=== PATIENT | male | born 1970 | race Caucasian/White ===

== ENCOUNTER 2018-09-03 09:02 | Outpatient (CLI) | payer OTHER, SELFPAY ==
[2018-09-03 10:23] LABS: Anion Gap 8.3 mmol/L (3-11); BUN 20 mg/dL (7-18); CO2 28.7 mmol/L (21.0-32.0); CREATININE 0.93 mg/dL (0.70-1.30); Calcium 8.8 mg/dL (8.5-10.1); Chloride 102 mmol/L (98-107); Glucose 232 mg/dL (70-100); Potassium 4.5 mmol/L (3.5-5.1); Sodium 139 mmol/L (136-145)
== END 2018-09-03 09:22 ==
PROVIDERS: PCP Family Medicine; Visit Provider Family Medicine
DX: E11.9 Type 2 diabetes mellitus without complications (principal)
CPT/HCPCS: 36415; 80048

== ENCOUNTER 2018-09-23 11:10 | Outpatient (CLI) | payer OTHER, SELFPAY ==
[2018-09-23 11:39] LABS: Hemoglobin A1C 8.9 % (4.5-6.2)
== END 2018-09-23 11:30 ==
PROVIDERS: PCP Family Medicine; Visit Provider Family Medicine
DX: E11.9 Type 2 diabetes mellitus without complications (principal)
CPT/HCPCS: 36415; 83036

== ENCOUNTER 2018-12-07 08:44 | Outpatient (CLI) | payer OTHER, SELFPAY ==
[2018-12-07 09:23] LABS: Hemoglobin A1C 7.5 % (4.5-6.2)
== END 2018-12-07 09:04 ==
PROVIDERS: PCP Family Medicine; Visit Provider Family Medicine
DX: E11.9 Type 2 diabetes mellitus without complications (principal)
CPT/HCPCS: 36415; 83036

== ENCOUNTER 2019-04-13 07:23 | Outpatient (CLI) | payer OTHER, SELFPAY ==
[2019-04-13 08:37] LABS: Hemoglobin A1C 7.4 % (4.5-6.2)
[2019-04-13 08:59] LABS: Anion Gap 10.7 mmol/L (3-11); BUN 20 mg/dL (7-18); CO2 25.3 mmol/L (21.0-32.0); CREATININE 0.92 mg/dL (0.70-1.30); Calcium 9.2 mg/dL (8.5-10.1); Chloride 104 mmol/L (98-107); Cholesterol 176 mg/dL (50-200); Glucose 225 mg/dL (70-100); HDL Cholesterol 31 mg/dL (40-60); LDL CHOLESTEROL 120 mg/dL (<100); Potassium 4.2 mmol/L (3.5-5.1); Sodium 140 mmol/L (136-145); Triglyceride 240 mg/dL (30-150)
== END 2019-04-13 07:43 ==
PROVIDERS: Family Medicine; PCP Family Medicine; Visit Provider Family Medicine
DX: E11.9 Type 2 diabetes mellitus without complications (principal)
CPT/HCPCS: 36415; 80048; 80061; 83721; 83036

== ENCOUNTER 2021-03-28 16:05 | Outpatient (REF) | payer OTHER, SELFPAY ==
[2021-03-28 22:17] LABS: Hemoglobin A1C 7.8 % (<5.7)
[2021-03-28 22:26] LABS: CREATININE 0.9 mg/dL (0.70-1.30); Calculated LDL 134 mg/dL (<100); Cholesterol 206 mg/dL (<200); HDL Cholesterol 37 mg/dL (40-60); Potassium 4.1 mmol/L (3.5-5.1); Triglyceride 175 mg/dL (<150)
== END 2021-03-28 16:06 | disposition home or self-care (01) ==
LOC: NCHCN 16:05
PROVIDERS: PCP Family Medicine; Visit Provider Family Medicine
DX: E78.5 Hyperlipidemia, unspecified (principal); R73.9 Hyperglycemia, unspecified; I10 Essential (primary) hypertension
CPT/HCPCS: 80061; 82565; 83036; 84132

== ENCOUNTER 2021-05-24 10:30 | Outpatient (CLI) | payer OTHER, SELFPAY ==
--- NOTE | 2021-05-24 10:00 | DI.RAD_ITS ---
Exam(s) XR LUMBAR SPINE AP, LAT EXAM: XR LUMBAR SPINE AP, LAT CLINICAL HISTORY: CHRONIC T-L PAIN RT SIDE. TECHNIQUE: 2D digital imaging was performed. COMPARISON: CR LUMBAR SPINE AP, LAT from 06/14/2013 FINDINGS: There is no evidence of compression fracture. There is mild anterolisthesis of L5 upon S1. There ap pear to be possible pars defects at L5 level. Mild disc space narrowing at this level is noted as we ll as moderate disc space narrowing at L4-5 level. Anterior osseous lipping at L3-4 level is noted. There is normal disc height at L3-4 with the exception of posteriorly where there is some narrowing. No osseous lesions. SI joints appear unremarkable. No scoliosis. IMPRESSION: Findings as above. Recommend flexion and extension lateral views over L5-S1 level to determine the t rue amount of slippage of L5 upon S1 during everyday activities and to bring out but I suspect are pa rs defects at the L5 level. DATA REPOSITORY: RADIATION DOSE DELIVERED:
== END 2021-05-24 10:50 ==
PROVIDERS: PCP Nurse Practitioner Family; Visit Provider Chiropractor Orthopedic
DX: M54.6 Pain in thoracic spine (principal); M54.9 Dorsalgia, unspecified; G89.29 Other chronic pain
CPT/HCPCS: 72100

== ENCOUNTER 2022-01-30 01:20 | Outpatient (CLI) | payer OTHER, SELFPAY ==
[2022-01-30 12:15] LABS: Source Nasal/Nares
[2022-01-30 14:31] LABS: COVID-19 PCR Negative (Negative)
== END 2022-01-30 01:21 | disposition home or self-care (01) ==
LOC: LBO 01:20
PROVIDERS: PCP Nurse Practitioner Family; Visit Provider Surgery
DX: Z20.822 Contact with and (suspected) exposure to COVID-19 (principal)
CPT/HCPCS: 87635

== ENCOUNTER 2022-02-01 07:09 | Day surgery (SDC) | payer OTHER, SELFPAY ==
--- NOTE | 2022-02-01 06:17 | W.ANESPRE ---
General Info Date of Service Date Performed: 02/01/22 Height: 5 ft 8 in Weight: 126.722 kg Body Mass Index (BMI): 42.5 Surgical Procedure: Operation Date: 02/01/22 08:20 Proposed Procedure Side Surgeon alfonso Urban, Meds Allergies and Home Medications Allergies Allergy/AdvReac Type Severity Reaction Status Date / Time cefaclor Allergy Unknown skin rash Verified 02/01/22 07:39 Cephalosporins Allergy Unknown Verified 02/01/22 07:39 codeine AdvReac Intermediate nausea Verified 02/01/22 07:39 erythromycin base AdvReac Mild GI Verified 02/01/22 07:39 Irritation Home Medication Medication Instructions Recorded blood sugar diagnostic (Akshay WellnessTouch #100 strip 09/30/18 Ultra Test) lancets 33 gauge (OneTouch Delica #100 ea 09/30/18 Lancets) ibuprofen 800 mg tablet 800 mg PO TID #90 tab-cap 12/18/20 atorvastatin 20 mg tablet 20 mg PO QHS #90 tab 03/29/21 metformin 1,000 mg tablet 1,000 mg PO BID #180 tab-cap 08/22/21 glipizide 5 mg tablet 5 mg PO BID #180 tab-cap 11/14/21 empagliflozin 25 mg tablet 25 mg PO QAM #90 tab 12/07/21 (Jardiance) lisinopril 5 mg tablet 5 mg PO DAILY #90 tab-cap 12/07/21 bisacodyl 5 mg tablet,delayed 5 mg PO ONCE #4 tab 01/18/22 release (Dulcolax (bisacodyl)) polyethylene glycol 3350 17 238 g PO ONCE #238 g 01/18/22 gram/dose oral powder zolpidem 10 mg tablet (Ambien) 10 mg PO QHS PRN #30 tab 01/24/22 Current Visit Medications: Current Medications Generic Name Dose Route Start Last Admin Trade Name Freq PRN Reason Stop Dose Admin Hyoscyamine Sulfate 0.125 mg 01/31/22 09:59 Hyoscyamine 0.125 Mg Sl/Oral/Chew SL DIRECTED PRN Ringer's Solution 1,000 mls @ 80 mls/hr 02/01/22 06:00 IV 02/28/22 23:59 INFUSION TED IV Miscellaneous Supplies 1 each 02/01/22 06:00 Iv Access IV 02/28/22 23:59 DIRECTED TED Ondansetron HCl 4 mg 01/31/22 09:59 Ondansetron 4 Mg/2 Ml Vial IVP Q4H PRN PRN Nausea / Vomiting Sodium Chloride 0 ml 02/01/22 06:00 Normal Saline Flush 10 Ml Syr IV 02/28/22 23:59 PRN PRN Sodium Chloride 0 ml 02/01/22 06:00 Normal Saline 10 Ml Vial IJ 02/28/22 23:59 DIRECTED PRN Sterile Water 0 ml 02/01/22 06:00 Water,Injection,Sterile 10 Ml Vial IJ 02/28/22 23:59 DIRECTED PRN PFSH Active Problems Active Problems: Problem Status Onset Code Screening for colon cancer Z12.11 Subluxation of costovertebral joint S23.100A Rib sprain S23.41XA Chronic thoracic back pain M54.6, G89.29 Chronic low back pain M54.5, G89.29 History of open reduction and internal fixation (ORIF) procedure Z98.890 Status post appendectomy Z90.49 Status post rotator cuff repair Z98.890 Status post tonsillectomy Z90.89 Insomnia G47.00 Tinnitus 12/22/17 H93.19 Thoracic spine pain 03/09/15 M54.6 Sleep disorder G47.9 Obesity E66.9 Hypertension 06/15/18 I10 History of tobacco use Z87.891 Spasm of thoracic back muscle M62.830 Generalized osteoarthrosis M15.9 Diabetes 05/26/14 E11.9 Dermatitis L30.9 Depressive disorder F32.9 Cervical radiculopathy 03/09/15 M54.12 Abnormal auditory perception 12/22/17 H93.299 Medical History Medical History (Updated 02/01/22 @ 07:59 by Jasmina Coy) Diabetes GERD (gastroesophageal reflux disease) History of cellulitis RLE x 3 History of COVID-19 Hypertension Inguinal hernia right Inguinal lymphadenopathy Surgical History Surgical History Appendectomy Fracture, Open Treatment tibia Repair of inguinal hernia right Rotator Cuff Repair right Tonsillectomy Tobacco Smoking/Tobacco Use Status: Former Tobacco Use Smokeless tobacco user: chewing tobacco and snuff Passive smoking exposure: Yes Second hand exposure: Yes Alcohol Alcohol Intake: current Alcohol intake frequency: holidays/special occasions only Alcohol type: beer Substance Use Substance use: Never Substance use type: does not use Vital Signs and Lab Results Lab Results Blood Type / Crossmatch: No Data to Display Complete Blood Count: No Data to Display Complete Metabolic Panel: No Data to Display Liver Function Panel: No Data to Display Coagulation Panel: No Data to Display Cardiac Panel: No Data to Display Arterial Blood Gas: No Data to Display Venous Blood Gas: No Data to Display Pancreas Panel: No Data to Display Thyroid Panel: No Data to Display Infectious Disease: Coronavirus (COVID-19)(PCR) Negative (Negative) 01/30/22 08:21 01/30/22 Coronavirus 2019 Source Nasal/Nares 01/30/22 08:21 01/30/22 Blood Cultures: No Data to Display Toxicology Panel: No Data to Display Imaging and Studies Imaging and Studies Study information below may be from another EMR and interpreted by another provider. Please see original notes in EMR for more complete details. Stress Test Summary: 2017: normal study after max exercise. Anesthesia Assessment and Plan Anesthesia History Personal History: No History of Anesthesia Complications Family History: No Family History of Anesthesia Complications Exercise Tolerance Exercise Tolerance: Metabolic Equivalents>4 Cardiac & Pulmonary Exam Cardiac Exam: Normal S1/S2 Heart Sounds Pulmonary Exam: Clear Bilateral Breath Sounds Implantable Cardiac Device Does patient have a Pacemaker or an ICD?: No Airway Exam Known Difficult Airway: No Mallampati Class: 3 Mouth Opening: Narrow (< 3cm) Thyromental Distance: Greater than 3 cm Neck Range of Motion: Full ROM Neck Circumference: Thick Teeth Condition: Normal Dentition ASA Classification ASA Score: ASA 3 Emergency Case?: No NPO Status NPO Status: NPO Clears >2 hours, Solids >8 hours Anesthesia Plan Resuscitation Status: Full Code Anesthesia Technique: General Anesthesia Airway Planned: Natural Airway Monitors Used: Standard Monitors Preoperative Comments:: 51 male for screening colo. Sig PMHx: BMI >40, DM (A1c 8.1%, metformin, glipizide, empagliflozin), GERD, HTN (lisinopril), former smoker (chews and snuff now), occ EtOH.
[2022-02-01 07:53] VITALS: BP 141/92; PULSE 88; RESP 16; TEMP 36.1; O2SAT 96
[2022-02-01] MEDS: Lactated Ringers 1,000 ML 80 ML IV (08:30)
[2022-02-01 08:33] VITALS: BMI 42.5
--- NOTE | 2022-02-01 08:36 | W.COLOREPORT ---
Colonoscopy Report Date of procedure: 02/01/22 Pre-op diagnosis general: CRC screen Post-op diagnosis procedure note: other (normal) Surgeon: Sherri Urban Anesthesia Type: General:No Airway Complications: None Disposition: same day Prep: Miralax/Dulcolax Retraction Time: 7 ins Procedure Description: After informed consent was obtained the patient was taken to the procedure room and placed in a left decubitous position. Monitors were applied and a time out was done. The patients name, date of , procedure, allergies to medications and metal in their body was reviewed. The patient was then sedated. Once sedated and comfortable a rectal exam was done. External exam was normal. Internal exam revealed a normal sphincter tone and no palpable masses. An endocuff was used today. The scope was then introduced and retrofelexed. No internal hemorrhoids were identified. The scope was then advanced to the cecum W/out difficulty. The TI and appendiceal orifice were identified. The prep was bbps-3 in all segments (9). The scope was then slowly retracted over 7 minutes back into the rectum. There are no polyps/AVM's/diverticula visulaized on today's exam. The scope was removed and the patient was woken up and taken back to Same day surgery in stable condition. The patient tolerated the procedure well and there were no immediate complications. Follow up: The patient should follow up in 10 years unless they develop changes in bowel habits or other new gastrointestinal complaints.
--- NOTE | 2022-02-01 09:07 | PDOC.DSDIS_ITS ---
Discharge Plan Disposition Patient Disposition: HOME Condition: Good Discharge Details Reason For Visit: CRC screen Attending Provider: Sherri Urban Primary Care Provider: Brando Braun Home Meds and New Rx's Prescriptions: No Action (DME) lancets [OneTouch Delica Lancets] 33 gauge misc 1 ea Miscellaneous DAILY Qty: 100 11RF Rx Instructions: bid prn (DME) OneTouch Ultra Test strip 1 ea Miscellaneous DAILY Qty: 100 11RF Rx Instructions: use bid prn zolpidem [Ambien] 10 mg tablet 10 mg PO QHS PRN (Reason: sleep) Qty: 30 0RF polyethylene glycol 3350 17 gram/dose powder 238 g PO ONCE Qty: 238 0RF Rx Instructions: take per colonoscopy instructions bisacodyl [Dulcolax (bisacodyl)] 5 mg tablet,delayed release (DR/EC) 5 mg PO ONCE Qty: 4 0RF Rx Instructions: take per colonoscopy instructions ibuprofen 800 mg tablet 800 mg PO TID Qty: 90 2RF Rx Instructions: with food atorvastatin 20 mg tablet 20 mg PO QHS Qty: 90 3RF metformin 1,000 mg tablet 1,000 mg PO BID Qty: 180 4RF glipizide 5 mg tablet 5 mg PO BID Qty: 180 4RF lisinopril 5 mg tablet 5 mg PO DAILY Qty: 90 4RF Jardiance 25 mg tablet 25 mg PO QAM Qty: 90 3RF Discharge Instructions Additional Instructions: DSU Colonoscopy Post- Op Instructions Instructions for Everyone who is given Anesthesia: For your safety, please do the following for the next twenty-four (24) hours: *Do Not operate a motor vehicle (car, truck, motorcycle, etc.) *Do Not drink alcoholic beverages or use any recreational drugs for the first 24 hours or while taking pain medications. The medications in your body may have a reaction that can be dangerous. *Do Not make any important decisions or sign any important papers. Findings: normal Follow up: repeat in 10 yrs time 1. No lifting over 20 pounds or strenuous activity for the first 24 hours after your procedure. After 24 hours there are no restrictions on your activity but you may feel fatigued for a few days. 2. After you arrive home you may have a light meal and return to your normal diet as you can tolerate it without feeling sick to your stomach. 3. You may have a bloated, gaseous feeling in your belly (abdomen) after a colonoscopy. Passing gas and belching will help. Walking or lying down on your left side with your knees flexed may relieve the discomfort. Call the office at [phone] (Office) or [phone] (Hospital) right away if you notice any of the following: a.Vomiting of blood or ?coffee ground stools?. b.Rectal bleeding 1Tbsp, blood clots or continuous bleeding. c.Severe belly (abdominal) pain. d.A hard distended belly (abdomen) and an inability to pass gas. 4. Please don?t expect to have a normal BM (bowel movement) for 2-3 days after your procedure. 5. If there are questions regarding the findings of your procedure, please contact your doctor 6. If you are unable to contact your doctor with a problem, contact the hospital at [phone]. 7. Continue all your regular medications unless directed otherwise. I understand the above instructions and have no questions. Signature of Patient or Adult Escort Name of Responsible Adult Escort Signature of Nurse Date/Time Activity:: see above Diet:: see above Discharge Orders Discharge Orders: Discharge Order (Routine); Ordered 01/31/22 Ordered By: Sherri Urban
[2022-02-01 09:17] VITALS: BP 121/85; PULSE 84; RESP 16; TEMP 36.3; O2SAT 92
--- NOTE | 2022-02-01 09:27 | W.ANESPOSTOP ---
Postoperative Evaluation Date, Time and Location Date Performed: 02/01/22 Time Performed: 09:15 Patient Location: Day Surgery Unit Vital Signs Most Recent Imported Vital Signs: Most Recent Vital Signs Temp Pulse Resp BP Pulse Ox 36.3 C L 84 16 121/85 92 02/01/22 09:17 02/01/22 09:17 02/01/22 09:17 02/01/22 09:17 02/01/22 09:17 Pain Score Most Recent Pain Score: Most Recent Pain Score Pain Level 0 02/01/22 09:17 Assessment Mental Status: Arousable with meaningful communication Airway and Respiratory Function: Patent airway with normal (patient baseline) respiratory exam Cardiovascular Function: Hemodynamically Stable Hydration Status: Adequately Hydrated Nausea & Vomiting: No Nausea or Vomiting Pain: Pt. Denies Any Pain Peripheral Nerve Block: Patient did not receive a nerve block
[2022-02-01 09:41] VITALS: BP 108/72; PULSE 74; RESP 16; TEMP 36.2; O2SAT 95
== END 2022-02-01 09:50 | disposition home or self-care (01) ==
PROVIDERS: PCP Nurse Practitioner Family; Visit Provider Surgery
PROC: 0DJD8ZZ Inspection of Lower Intestinal Tract, Via Natural or Artificial Opening Endoscopic (ICD-10-PCS; CPT 45378; principal; 2022-02-01 08:15)
DX: Z12.11 Encounter for screening for malignant neoplasm of colon (principal); E11.9 Type 2 diabetes mellitus without complications; I10 Essential (primary) hypertension; K21.9 Gastro-esophageal reflux disease without esophagitis; Z79.84 Long term (current) use of oral hypoglycemic drugs
CPT/HCPCS: 45378; J2001

== ENCOUNTER → 2022-07-26 00:22 | Outpatient (CLI) | payer OTHER, SELFPAY ==
--- OUTSIDE RECORDS SUMMARY | 2022-07-26 00:23 | XMS_ITS | Encounter Summary ---
:1970 Author Organization [facility] [place] [address] Care Team Providers Name Role Phone Nils Liz MD Primary Care Provider Reason for Visit Reason Comments Psoriasis Encounter Details Date Type Department Care Team Description 01/21/2013 Office Visit Dermatology Dru Arellano, Psoriasis (Primary [address] MD Dx) [address] [place], [place] DERMATOLOGY [address] [place] [address] [phone] (Wo rk) Social History Tobacco Use Types Packs/Day Years Used Date Never Smoker Sex Assigned at Date Recorded Not on file documented as of this encounter Progress Notes Dru Arellano MD - 01/21/2013 4:22 PM EST Problems: 1. Followup psoriasis. 2. Status post unsuccessful trials of acitretin, methotrexate, Enbrel, and Humira. Jono follows up after last being seen in March 2012. He was seen at [facility] this summer and treated with topical clobetasol and triamcinolone cream, which did seem to help. He has run out of these and also was told not to use them too long because of the potential for steroidal atrophy. He wonders what he should be doing at this point. Physical examination reveals psoriasiform changes on the palmar hands with cracking and fissuring hyperkeratosis, also on his anterior shins, and a little bit on the soles of his feet. He has no significant involvement on the elbows today. Assessment and Plan: Psoriasiform hand and foot dermatitis, probable psoriasis, also involving shins. a. Discussed the safety of clobetasol if used as prescribed. Apply b.i.d. to hands to control psoriasis, and then try to minimize use and use CeraVe cream; 50 grams dispensed with three refills. b. May also use for shins, but discussed steroidal atrophy and the importance also of clobetasol holidays to allow the skin to recover. c. Discussed also the option of Stelara, which his significant other, Rosalinda, is using. d. Continue CeraVe cream as an emollient. e. The patient will be heading south for a vacation, and I think with the trip to [place] and the summer weather coming, he should see significant improvement; but we will hold Stelara in reserve for him. Copy: Nils Liz M.D. documented in this encounter Plan of Treatment Not on filedocumented as of this encounter Visit Diagnoses Diagnosis Psoriasis - Primary Other psoriasis documented in this encounter Care Teams Commercial Credit Reviewer Relationship Specialty Start Date End Date Nils Liz MD PCP - General 12/10/[address] [place] [address] documented as of this encounter
--- OUTSIDE RECORDS SUMMARY | 2022-07-26 00:23 | XMS_ITS | Encounter Summary ---
:1970 Author Organization [facility] [place] [address] Care Team Providers Name Role Phone Vidal Willis MD Primary Care Provider Reason for Visit Reason Comments Dermatitis Encounter Details Date Type Department Care Team Description 11/12/2011 Office Visit Dermatology Dru Arellano, Psoriasis (Primary [address] [place] Dx) [address] [place], [place] D[place]MATOLOGY [address] [place] [address] [phone] (Wo rk) Social History Tobacco Use Types Packs/Day Years Used Date Never Smoker Sex Assigned at Date Recorded Not on file documented as of this encounter Progress Notes Dru Arellano MD - 11/12/2011 4:05 PM EST Problem: Followup psoriasiform hand and foot dermatitis/shins and elbows. Jono follows up and has only seen slight improvement with the Acitretin over the last month. Also the drying effect on his skin has been noticeable and he has been getting some eczematous patches on the lower legs. Physical examination reveals continued psoriasiform changes on the palmar hands, also now new sites on the lateral aspects of his feet. He still has patches of psoriasis on the elbows and on the anterior shins and a xerotic eczematous patchy dermatitis on the back of his calves in all likelihood due to his Acitretin. Assessment & Plan: Psoriasiform hand and foot dermatitis/psoriasis. a. Continue Acitretin 25mg one p.o. q. day. b. Begin also Methotrexate 2.5mg take six of these p.o. q. week, #30 dispensed with one refill. c. Begin Triamcinolone 0.1% Cream apply BID to affected areas that are itchy and are involved on hands, feet and legs, 80gm tube dispensed with two refills. d. RTC in one month for repeat check. e. The patient's is on Enbrel for her psoriasis and this has worked wonderfully for her. We discussed that we must first try standard therapies before we could consider that option, and he understands. Copy: Nils Liz MD documented in this encounter Plan of Treatment Not on filedocumented as of this encounter Visit Diagnoses Diagnosis Psoriasis - Primary Other psoriasis documented in this encounter Care Teams Blending Technician Relationship Specialty Start Date End Date Vidal Willis MD PCP - General 10/23/10 12/09/[address] [place] [address] documented as of this encounter
--- OUTSIDE RECORDS SUMMARY | 2022-07-26 00:23 | XMS_ITS | Encounter Summary ---
:1970 Author Organization [facility] Address [address] [place] [address] Care Team Providers Name Role Phone Vidal Willis MD Primary Care Provider Unavailable Encounter Details Date Type Department Care Team Description 12/11/2017 Results Only [facility]- Alfredo De Oliveira MD [phone] [place] [address] [phone] Social History Tobacco Use Types Packs/Day Years Used Date Never Assessed Sex Assigned at Date Recorded Not on file documented as of this encounter Plan of Treatment Not on filedocumented as of this encounter Procedures Procedure Name Priority Date/Time Associated Diagnosis Comme nts SURGICAL PATHOLOGY Routine 12/11/2017 9:42 EST Re sults for this procedure are i n the results section. FLOW CYTOMETRY Routine 12/11/2017 0:00 EST Result s for this procedure are i n the results section. documented in this encounter Results SURGICAL PATHOLOGY (12/11/2017 9:42 EST) Pathology Report: SURGICAL PATHOLOGY REPORT [facility] Reports generated via electronic interface conta in original data; [facility]ENTER LAB[facility]ORY however they are lacking the format of the original re port. SERVICES Caution should be taken when reading/interpreting unfo rmatted reports. Name: ? JONO ALVARADO ? Accession #: ? [id number] ? : ? 1970 (Age: 47 ) ??M ? Collect Date: ? 12/11/2017 ? Location: ? [facility] ? Receive Date: ? 8 ? Provider: ALFREDO COBURN MD Copy to: RUBI MAURICE MD ? Final Pathologic Diagnosis: Inguinal lymph node, Right, Excisional biopsy: ? - Reactive lymph node with follic ular and paracortical hyperplasia. See comment. Comment: The biopsy sections show a benign reactive process wit h follicular and paracortical hyperplasia and focal dermatopathic changes. The concurrent flow cytometric analysis ([id number]) demonstrates no immunophe notypic evidence of a clonal cell population. The overall morphologic and immunophenotypic findings are those of a benign, reactive lymphoid process. Clin ical correlation is recommended. Document reviewed and electronically signed by: HORTENCIA NINO MD Report ??Date: 12/15/2017 13:33 By the signature above, the attending physician certif ies that he/she has personally conducted a gross and/or microscopic examin ation of the described specimens and rendered or confirmed the above diagnosi s. Specimen(s) Received: Right inguinal lymph node for pathology Clinical History: Right inguinal lymphadenopathy Gross Description: ? Received in formalin labelled with proper patient identification (initials G T) and right inguinal lym ph node for pathology is a previously incised ovoid lymph node (2.5 x 2.1 x 1.8 cm). The cut surfaces are campoverde-pink and rubbery with a mottled appearance. The specimen is submitted entire ly in 1-4. MONI Umana (ASCP) 12/12/2017 10:32 AM End of Report Specimen Performing Organization Address City/State/ZIP Code Phon e Number [facility] [address] [place] [address] SERVICES FLOW CYTOMETRY (12/11/2017 0:00 EST) Pathology FLOW CYTOMETRY REPORT [facility] MEDICAL Report: CENTER Reports generated via electronic interface contain addy ginal data; LABORATORY however they are lacking the format of the original re port. SERVICES Caution should be taken when reading/interpreting unfo rmatted reports. Name: ? JONO ALVARADO ? Accession #: ? [id number] : ? 1970 (Age: 47) ??M ?Collect Date: ? 12/11 00:00 Location: ? [facility] ? Receive Date: ? 12/12/2017 08:35 Provider: ?ALFREDO COBURN MD Copy to: ?RUBI MAURICE MD ? FINAL IMMUNOPHENOTYPIC INTERPRETATION: ? Lymph node, right inguinal, flow cytometric analysis: - ?No immunophe notypic evidence of a clonal cell population. ??See comment. ? COMMENT: The results of flow cytometry show no im munophenotypic evidence of involvement by a clonal lymphoproliferative disorder. Correlation of these findings with morphologic and clinical data is essential. The result s are consistent with reactive lymphocytes. Flow cytometry is not sensitive for the detection of Hodgkin lymphoma. Selective cell loss ma y occur and may reduce sensitivity for the detection of large cell lymphoma. Correlation of t hese findings with morphologic and clinical data is teressa mendenhall; please refer to surgical pathology report [id number] for morphologic details. ? Document reviewed and electronically signed by: ? RUBI TELLEZ MD Report Date: ??12/12/2017 14:21 By the signature above, the attending physician certif ies that he/she has personally conducted an evaluation of the described sp ecimen and rendered or confirmed the above diagnosis. CLINICAL HISTORY: The patient is a 47-year-old man with right inguinal l ymphadenopathy. DESCRIPTION: The specimen consists of lymph node tiss ue from which a single cell suspension is prepared. Gating is performed using CD45 fluorescen ce and side scatter. Cellular viability (assessed by propidium iodide exclusion) is adequate (75%) among the CD45 positive even ts. Expression of the following antigens is tested: CD2, CD3, CD4, CD5, CD7, CD8 , CD10, CD11b, CD11c, CD14, CD16, CD19, CD20, CD22, CD23, CD38, CD45, CD56, CD57, FMC-7, HLA-DR, kappa, la mbda. A majority of the lymphoid c ells are T-lymphocytes (CD2+CD3+CD5+CD7+) with CD4+ and CD8+ subsets represented. The remaining lymphocyte s are B-lymphocytes (CD19+CD20+). Among the B-cells, both kappa+ and lambd a+ subsets are represented. ? This test was developed and its performance coby acteristics determined by the Department of Pathology and Laboratory M edicine, [facility], [place], [place]. ??It has not bee n cleared or approved by the U.S. Food and Drug Administration. ??F DA does not require this test to go through premarket FDA review. ??This test is u sed for clinical purposes. ??It should not be regarded as investigational or for research. ??This laboratory is certified under the Clinical Laboratory Improvement Amendmen ts (CLIA) as qualified to perform high complexity clinical laboratory testing. ? End of Report ?? Specimen Performing Organization Address City/State/ZIP Code Phon e Number [facility] [address] [place] [address] SERVICES documented in this encounter Visit Diagnoses Not on filedocumented in this encounter Care Teams Agile Scrum Coach Relationship Specialty Start Date End Date Vidal Willis MD PCP - General 11/26/10 12/14/17 documented as of this encounter
--- OUTSIDE RECORDS SUMMARY | 2022-07-26 00:23 | XMS_ITS | Encounter Summary ---
:1970 Author Organization [facility] [place] [address] Care Team Providers Name Role Phone Nils Liz MD Primary Care Provider Reason for Visit Reason Comments Dermatitis Encounter Details Date Type Department Care Team Description 10/05/2012 Follow-Up Dermatology Jese Ceja, Dermatitis (Primary Dx) [facility] [place] [address] [facility] [place] [phone] (Wo rk) Social History Tobacco Use Types Packs/Day Years Used Date Never Smoker Sex Assigned at Date Recorded Not on file documented as of this encounter Progress Notes Anders Ramos MD - 10/05/2012 3:01 PM EST Provider ANDERS RAMOS MD I was available for discussion but I did not see this patient. ANDERS RAMOS MD, M.D. Section of Dermatology Jese Ceja MD - 10/05/2012 2:34 PM EST DERMATOLOGY - ESTABLISHED PATIENT FOLLOW-UP Date of service: 10/05/2012 Jono Alvarado : 1970 Dermatology Resident Note: Jese Ceja MD Chief Problem: Chief Complaint Patient presents with ??? Dermatitis Mr. Jono Alvardao is a 42 y.o. male. This is an established patient, last seen by me on 08/06/2012,previously seen by Dr. Arellano. HPI: Mr. Alvarado presents for follow-up of dermatitis on his shins and hands . He states that his legs are clear after moisturizing and using clobetasol, and hands are much improved. He is using Clobetasol 2-3 x's a day on his hands and moisturizing frequently with cerave. He has gloves to wear at bedtime as he scratches his hands in his sleep,but he doesn't wear them. No new concerns, doing well. Skin History: Psoriasis vs dermatitis Medical History: Patient Active Problem List Diagnoses Code ??? Psoriasis 696.1U ??? Dermatitis 692.9AP Medications: Current outpatient prescriptions ordered prior to encounter Medication Sig Dispense Refill ??? clobetasol (TEMOVATE) 0.05 % ointment Apply topically 2 times daily. 30 g 1 ??? triamcinolone (KENALOG) 0.1 % cream Apply topically 2 times daily. ??? ETANERCEPT (ENBREL SURECLICK SUBQ) Inject subcutaneously. ??? ACITRETIN ORAL Take 25 mg by mouth daily. ??? fluocinonide (LIDEX) 0.05 % cream Apply topically as needed. ??? hydroCODone-acetaminophen (NORCO) 5-325 mg per tablet 1 Tablet(s), PO, Four times daily,PRN ??? ibuprofen (ADVIL;MOTRIN) 800 mg tablet Allergies: Allergies Allergen Reactions ??? Cefaclor CIS - rash ??? Erythromycin Base ??? Codeine Phos CIS - Nausea/Vomiting Family History: No family history of melanoma or non-melanoma skin cancer No family history of atopy, psoriasis or other skin disease Review of Systems: - General: Feels well. - Skin: As per HPI; no other skin concerns. Examination: - Constitutional: Patient was alert, well-appearing and in no noticeable distress. An abbreviated skin exam was performed; this includes:shins, hands Specific skin findings: 1. Erythematous, minimally eczematous Plaques on central palms and lateral fingers, much improved. No increased temperature, purulence or other evidence of infection. Shins clear. Diagnosis/Assessment/Treatment Plan: 1. Eczematous dermatitis vs psoriasis -Legs clear, hands much improved, patient happy with current therapy. Reassured. Favor eczema for leg dermatitis, hands still difficult to ascertain whether psoriasis or eczema but much improved. No nail pitting. Advised on importance of routine health and age appropriate screening d/t link between psoriasis and metabolic syndrome and cardiovascular events. -Advised on importance of continuing with sensitive skin care and frequent moisturization, especially now that winter is here. -Switch to TAC daily x 2-3 more weeks then sparingly 2-3x weekly as needed. Clobetasol for flares only BID x 2-3 weeks if needed. Advised on ADES including atrophy, advised not to use in groin, axilla or face. -Rec wear his gloves at bedtime. -Patient will call for follow-up if necessary or if he flares, otherwise will f/u prn. RTC As needed. Instructed to call for questions/concerns. Jese Ceja MD Resident in Dermatology [facility] staff rug sizer: Bryan Ramos MD Section of Dermatology [facility] documented in this encounter Plan of Treatment Not on filedocumented as of this encounter Visit Diagnoses Diagnosis Dermatitis - Primary Contact dermatitis and other eczema, due to unspecified cause documented in this encounter Care Teams Detailer Relationship Specialty Start Date End Date Nils Liz MD PCP - General 12/10/[address] [place] [address] documented as of this encounter
--- OUTSIDE RECORDS SUMMARY | 2022-07-26 00:23 | XMS_ITS | Encounter Summary ---
:1970 Author Organization [facility] Address [address] [place] [address] Care Team Providers Name Role Phone Vidal Willis MD Primary Care Provider Unavailable Encounter Details Date Type Department Care Team Description 12/11/2017 Hospital Encounter [facility] [place] Unknown, Provider, Rajendra Schneider MD [address] [facility] [phone] [place] [address] (Work) [phone] Social History Tobacco Use Types Packs/Day Years Used Date Never Assessed Sex Assigned at Date Recorded Not on file documented as of this encounter Discharge Disposition Disposition Code Departure Means Destination Home or Self Snf documented in this encounter Plan of Treatment Not on filedocumented as of this encounter Visit Diagnoses Not on filedocumented in this encounter Care Teams Summer Babysitter Relationship Specialty Start Date End Date Vidal Willis MD PCP - General 11/26/10 12/14/17 documented as of this encounter
--- OUTSIDE RECORDS SUMMARY | 2022-07-26 00:23 | XMS_ITS | Encounter Summary ---
:1970 Author Organization [facility] Address [address] [place] [address] Care Team Providers Name Role Phone Unknown, Provider Primary Care Provider Encounter Details Date Type Department Care Team Description 11/20/2010 Results Only [facility] Rubi Liz MD [phone] [place] [address] Social History Tobacco Use Types Packs/Day Years Used Date Never Assessed Sex Assigned at Date Recorded Not on file documented as of this encounter Plan of Treatment Not on filedocumented as of this encounter Procedures Procedure Name Priority Date/Time Associated Diagnosis Comme nts SURGICAL PATHOLOGY Routine 11/20/2010 0:00 EST Re sults for this procedure are i n the results section. documented in this encounter Results SURGICAL PATHOLOGY (11/20/2010 0:00 EST) Pathologist [facility] Pathology SURGICAL PATHOLOGY REPORT ? KAJAL BLACKMON Report: Reports generated via [employer] interface contain original data; ? LAB however they are lacking the format of the original report. ? Caution should be taken when reading/interpreting unformatted reports. ? Name: ? JONO ALVARADO ? Accession #: ? [id number] ? : ? 1970 (Age: 40) ??M ? Collec t Date: ? 11/20/2010 ? Location: ? [facility] ? R eceive Date: ? 11/21/2010 ? Provider: RUBI G KAYLENE MD ? Copy to: SATURNINO MAO MD ? Final Pathologic Diagnosis: ? Skin of leg, right lo wer, punch biopsy: ? - Subacute spongiotic dermat itis. ??See comment. ? Comment: ? Multiple sections of the biopsy were reviewed. ??The biopsy shows features ?? of subacute spongiotic (ecze matous) dermatitis with superimposed changes of ? lichenification. ??The featu res could represent nummular eczema. ??Other forms of eczematous dermatitis would also be included in the differential diagnosis. ? Allergic contact dermatitis is somewhat less likely, however, given the paucity of eosinophils within the in flammatory infiltrate. ??(Dr. Fong)/kmm ? Microscopic Description: ? Sections consist of a bisected punch biopsy of skin to the deep reticular ?? dermis. ??The stratum corneu m has compacted orthohyperkeratosis with foci of ? parakeratosis and scale heber t. ??The epidermis is irregularly hyperplastic with ?? elongate and thickened rete ridges. ??There is a variable amount of epidermal ? spongiosis with exocytosis o f lymphomononuclear cells. ??In areas, the granular ?? layer is slightly accentuate d. ??Centrally, the superficial epidermis is ? excoriated and there is unde rlying reactive vascular changes. ??The papillary ? dermis has a moderately dens e perivascular and interstitial inflammatory ? infiltrate. ??The infiltrate is composed primarily of lymphomononuclear cells. ?? Many of the papillae are exp anded by thick bundles of collagen, some of which ?? are oriented in a vertical f ashion. ??Deeper sections show similar features. ? (Dr. Fong)/kmm ? Document reviewed and electr onically signed by: ? DIANA L COOK MD ? Report ??Date: 11/27/2010 13 :51 ? By the signature above, the attending physician certifies that he/she has ? personally conducted a gross and/or microscopic examination of the described ? specimens and rendered or co nfirmed the above diagnosis. ? Specimen(s) Received: ? R lower leg 4.0 mm pu nch bx ? Clinical History: ? Red papule ? Gross Description: ? Received in formalin labelled Jenny, Jono and right lower leg is a campoverde circular 0.4 cm skin pun ch excised to a depth of 0.3 cm. ??The specimen is ?? bisected and submitted racheal burks in one cassette. ?? (June Zarate)/tmg ? End of Report ? Specimen Performing Organization Address City/State/ZIP Code Phon e Number [facility] [address] [place] [address] [facility] [address] [place] [address] documented in this encounter Visit Diagnoses Not on filedocumented in this encounter Care Teams Manager Transfer Relationship Specialty Start Date End Date Unknown, Provider, PCP - General 11/21/10 11/25/10 documented as of this encounter
--- OUTSIDE RECORDS SUMMARY | 2022-07-26 00:23 | XMS_ITS | Encounter Summary ---
:1970 Author Organization [place] [address] Care Team Providers Name Role Phone Nils Liz MD Primary Care Provider Reason for Visit Reason Comments Psoriasis Encounter Details Date Type Department Care Team Description 12/10/2011 Office Visit Dermatology Dru Arellano, Psoriasis (Primary [address] [place] Dx) [address] [place], [place] DERMATOLOGY [address] [place] [address] [phone] (Wo rk) Social History Tobacco Use Types Packs/Day Years Used Date Never Smoker Sex Assigned at Date Recorded Not on file documented as of this encounter Progress Notes Dru Arellano MD - 12/10/2011 4:06 PM EST Problem: Followup psoriasiform hand and foot dermatitis, also involvement with shins and elbows. Jono follows up and has not seen significant improvement with the addition of Methotrexate to his Acitretin. In fact the Acitretin is now causing increasing drying, fissuring and cracking of the psoriatic plaques. Physical examination reveals continued psoriasiform changes on the hyman hands with cracking and fissuring which are open and painful, as well as new sites on the lateral aspects of his feet. He still has patches of psoriasis on the elbows and on the anterior shins. Assessment & Plan: Psoriasiform hand and foot dermatitis. a. D/C Acitretin. b. Continue Methotrexate 2.5mg taking six of these p.o. q. week. c. Will now attempt to obtain Enbrel. His significant other Rosalinda Lundy has been first on Enbrel and then on Humira which is working very well for her psoriasis. Will try however first Enbrel for Jono. d. Dosing would be 50mg BIW for three months, then 50mg once weekly thereafter, #8 dispensed with two refills. e. RTC in 1-2 weeks to initiate Enbrel and for injection training with the SureClick autoinjector which I have ordered today. Copy: Nils Liz MD documented in this encounter Plan of Treatment Not on filedocumented as of this encounter Visit Diagnoses Diagnosis Psoriasis - Primary Other psoriasis documented in this encounter Care Teams Battery Repairer Relationship Specialty Start Date End Date Nils Liz MD PCP - General 12/10/[address] [place] [address] documented as of this encounter
--- OUTSIDE RECORDS SUMMARY | 2022-07-26 00:23 | XMS_ITS | Encounter Summary ---
:1970 Author Organization [facility] [place] [address] Care Team Providers Name Role Phone Nils Liz MD Primary Care Provider Reason for Visit Reason Comments Psoriasis Encounter Details Date Type Department Care Team Description 01/09/2012 Office Visit Dermatology Dru Arellano, Psoriasis (Primary [address] MD Dx) [address] [place], [place] DERMATOLOGY [address] [place] [address] [phone] (Wo rk) Social History Tobacco Use Types Packs/Day Years Used Date Never Smoker Sex Assigned at Date Recorded Not on file documented as of this encounter Progress Notes Dru Arellano MD - 01/09/2012 5:24 PM EST Problem: 1. Followup psoriasis ready to begin Enbrel. 2. Status post unsuccessful trials of Acitretin and Methotrexate. Jono follows up today and he is here with his Rosalinda. He is ready to begin Enbrel. He received eight boxes of product. Physical examination today continues to reveal psoriasiform changes on the palmar hands with cracking and fissuring, also on the lateral aspects of his feet and patches of psoriasis on the elbows and anterior shins. Assessment & Plan: Psoriasiform hand and foot dermatitis as well as elbows, shins and knee involvement. a. Today demonstrated the injection technique for Enbrel. b. Discussed benefits and side effects. c. Today I injected 50mg of Enbrel into the right posterior arm for him. d. The regular dosing will now be 50mg BIW for three months then 50mg once weekly thereafter. e. RTC in three months for repeat check and reassessment of his progress. f. Complete and discontinue Methotrexate. g. Patient has Prior Authorization good between 12/28 and 03/30/2012. Copy: Nils Liz MD documented in this encounter Plan of Treatment Not on filedocumented as of this encounter Visit Diagnoses Diagnosis Psoriasis - Primary Other psoriasis documented in this encounter Care Teams Electronic Pagination System Operator Relationship Specialty Start Date End Date Nils Liz MD PCP - General 12/10/[address] [place] [address] documented as of this encounter
--- OUTSIDE RECORDS SUMMARY | 2022-07-26 00:23 | XMS_ITS | Encounter Summary ---
:1970 Author Organization [facility] Address [address] [place] [address] Care Team Providers Name Role Phone Vidal Willis MD Primary Care Provider Unavailable Encounter Details Date Type Department Care Team Description 12/11/2017 Hospital Encounter [facility] [place] Unknown, Provider, Rajendra Schneider MD [address] [facility] [phone] [place] [address] (Work) [phone] Social History Tobacco Use Types Packs/Day Years Used Date Never Assessed Sex Assigned at Date Recorded Not on file documented as of this encounter Discharge Disposition Disposition Code Departure Means Destination Home or Self Custodial documented in this encounter Plan of Treatment Not on filedocumented as of this encounter Visit Diagnoses Not on filedocumented in this encounter Care Teams Assembler Chassis Relationship Specialty Start Date End Date Vidal Willis MD PCP - General 11/26/10 12/14/17 documented as of this encounter
--- OUTSIDE RECORDS SUMMARY | 2022-07-26 00:23 | XMS_ITS | Encounter Summary ---
:1970 Author Organization [facility] [place] [address] Care Team Providers Name Role Phone Vidal Willis MD Primary Care Provider Reason for Visit Reason Comments Dermatitis Encounter Details Date Type Department Care Team Description 10/01/2011 Office Visit Dermatology Dru Arellano, Psoriasis (Primary [address] [place] Dx) [address] [place], [place] D[place]MATOLOGY [address] [place] [address] [phone] (Wo rk) Social History Tobacco Use Types Packs/Day Years Used Date Never Smoker Sex Assigned at Date Recorded Not on file documented as of this encounter Progress Notes Dru Arellano MD - 10/01/2011 2:59 PM EDT Problem: Hand and cardenas dermatitis. Jono is a 41-year-old gentleman who is referred today by Dr. Nils Liz for a cardenas and hand dermatitis of some six months duration. Apparently it began in March on his shins and then spread to his hands. There was no prior medical illness, injury, strep throat or other infection. He is on no medications. Dr. Liz performed a biopsy on the cardenas which showed spongiotic dermatitis consistent with nummular eczema. Despite the use of Fluocinonide Cream under Saran Wrap occlusion the patient was not really able to clear the dermatitis neither on his shins nor on his hands. 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 At time his hands will be so sore that he is even unable to open a beer. He was recently out at a hunting camp in [place] and he was unable to even open a beer there although he did get a nice ten point eduardo bow hunting. Family history is significant for psoriasis in his father. Physical examination reveals minimal patchy erythema in the scalp but he does have small but noticeable patches of psoriasiform dermatitis consistent with psoriasis on the elbows. He has hyperkeratotic psoriasiform patches and plaques on the palmar hands and fingers with painful open fissuring also consistent with psoriasis. He has some anterior cardenas findings erythema with minimal hyperkeratosis also consistent with psoriasis. He has no involvement of the knees. He has no pitting of his fingernails. Assessment & Plan: Probable psoriasis. a. Given difficulty to treat and painful nature of hand involvement with topicals, I think we need to progress to systemics. b. Recommended a trial of Acitretin 25mg one p.o. q. day on a full stomach for a month and a half then return to clinic, #30 dispensed with one refill. c. Discussed with patient the diagnosis. His girlfriend also apparently has psoriasis. Explained that it is not contagious but that he may have inherited the tendency towards psoriasis from his father. Expressed optimism however that we should be able to get things to clear up again as this is acute new onset and primarily palmar psoriasiform in involvement. d. RTC in six weeks for repeat check. Cc: Nils Liz MD documented in this encounter Plan of Treatment Not on filedocumented as of this encounter Visit Diagnoses Diagnosis Psoriasis - Primary Other psoriasis documented in this encounter Care Teams Offset Platemaker Relationship Specialty Start Date End Date Vidal Willis MD PCP - General 10/23/10 12/09/11 [address] [place] [address] documented as of this encounter
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
== END ==
PROVIDERS: PCP Nurse Practitioner Family; Visit Provider Nurse Practitioner Family
DX: M47.812 Spondylosis without myelopathy or radiculopathy, cervical region (principal)
CPT/HCPCS: 72050

== ENCOUNTER 2022-11-04 10:13 | Outpatient (CLI) | payer OTHER, SELFPAY ==
[2022-11-04 12:52] LABS: ALT 29 U/L (16-63); AST 14 U/L (15-37); Albumin 4.1 g/dL (3.4-5.0); Alkaline Phosphatase 77 U/L (46-116); Anion Gap 13.2 mmol/L (3-11); BUN 22 mg/dL (7-18); Bilirubin, Total 0.3 mg/dL (0.2-1.0); CO2 23.8 mmol/L (21.0-32.0); Calcium 9.7 mg/dL (8.5-10.1); Chloride 103 mmol/L (98-107); Estimated GFR 91.12 (mL/min/1.73m2); Glucose 215 mg/dL (74-106); Sodium 140 mmol/L (136-145); TSH (W/Ref FT4) 0.78 uIU/mL (0.36-3.74); Total Protein 8.3 g/dL (6.4-8.2)
[2022-11-05 10:21] LABS: Lyme Ab w Rflx to Lyme Confirm Negative (Negative)
[2022-11-06 20:18] LABS: Anaplasma phagocytophilum Negative (Negative); B. miyamotoi PCR Negative (Negative); Babesia divergens/MO-1 Negative (Negative); Babesia duncani Negative (Negative); Babesia microti Negative (Negative); Ehrlichia chaffeensis Negative (Negative); Ehrlichia ewingii/canis Negative (Negative); Ehrlichia muris eauclairensis Negative (Negative)
== END 2022-11-04 10:14 | disposition home or self-care (01) ==
LOC: LOS 10:14
PROVIDERS: PCP Nurse Practitioner Family; Visit Provider Nurse Practitioner Family
DX: M25.59 Pain in other specified joint (principal); E66.9 Obesity, unspecified
CPT/HCPCS: 36415; 80053; 87798; 84443; 86618

== ENCOUNTER 2023-04-14 03:01 | Outpatient (CLI) | payer OTHER, SELFPAY ==
[2023-04-14 12:51] LABS: CREATININE 1.1 mg/dL (0.70-1.30); Calculated LDL 125 mg/dL (<100); Cholesterol 227 mg/dL (<200); Estimated GFR 80.77 (mL/min/1.73m2); HDL Cholesterol 44 mg/dL (40-60); Potassium 4.3 mmol/L (3.5-5.1); Triglyceride 293 mg/dL (<150)
== END 2023-04-14 03:02 | disposition home or self-care (01) ==
LOC: LOS 03:01
PROVIDERS: PCP Nurse Practitioner Family; Visit Provider Nurse Practitioner Family
DX: I10 Essential (primary) hypertension (principal); E78.5 Hyperlipidemia, unspecified
CPT/HCPCS: 36415; 80061; 82565; 84132

== ENCOUNTER 2023-04-29 10:00 | Outpatient (CLI) | payer OTHER, SELFPAY | END 2023-04-29 10:01 | disposition home or self-care (01) | PROVIDERS: PCP Nurse Practitioner Family; Visit Provider Nurse Practitioner Family | DX: R00.2 Palpitations (principal) | CPT/HCPCS: 93246 ==

== ENCOUNTER 2023-05-30 09:17 | Outpatient (CLI) | payer OTHER, SELFPAY ==
--- NOTE | 2023-05-30 12:34 | W.CARDEVENT ---
Date of service: 05/30/23 Time of Service: 12:34 Cardiac Event Recorder Referring Provider:: Brando Braun Indications:: Palpitations Cardiac Event Note: This is a 14-day cardiac event monitor Rhythm throughout was sinus with an average heart rate of 85. Minimum was 52, maximum 139 There were very rare isolated atrial and ventricular ectopic beats there was no atrial fibrillation, no SVT, no high-grade AV block, no pauses greater than 3 seconds Patient symptoms were reported which did not correspond to any dysrhythmia
== END 2023-05-30 09:18 | disposition home or self-care (01) ==
LOC: CARDOPNVT 09:17
PROVIDERS: PCP Nurse Practitioner Family; Visit Provider Internal Medicine Cardiovascular Disease
DX: R00.2 Palpitations (principal)

== ENCOUNTER 2025-07-15 10:52 | Outpatient (CLI) | payer OTHER, SELFPAY ==
[2025-07-15 13:12] LABS: Calculated LDL 108 mg/dL (<100); Cholesterol 181 mg/dL (<200); HDL Cholesterol 40 mg/dL (>or=40); Triglyceride 165 mg/dL (<150)
[2025-07-15 19:08] LABS: PSA, Screening 1.2 ng/mL (<=3.5)
== END 2025-07-15 10:53 | disposition home or self-care (01) ==
PROVIDERS: PCP Nurse Practitioner Family; Visit Provider Nurse Practitioner Family
DX: Z13.220 Encounter for screening for lipoid disorders (principal); Z12.5 Encounter for screening for malignant neoplasm of prostate
CPT/HCPCS: 36415; 80061; 84153